=== PATIENT | male | born 1980 | race Caucasian/White ===

== ENCOUNTER 2017-04-17 11:40 | Inpatient (IN) | payer MEDICAID ==
[~2017-04-17] VITALS: Ht 165.1 cm; Wt 56.2 kg
[~2017-04-17 11:40] MED LIST: DIAZ5TAB7 PO; Folic Acid PO; MINERALS PO; MULTIVITAMIN PO; THIA100T25 PO; [UNRECOGNIZED DRUG - OTHER] PO
[2017-04-17 12:08] VITALS: BP 123/75
--- NOTE | 2017-04-17 12:27 | NUR ---
Patient ambulated to bed 6. RN evaluating patient at bedside.
--- NOTE | 2017-04-17 12:30 | NUR ---
PATIENT PRESENTS TO ED WITH c/o pain bright red blood to growth left side inner gluteal----pt states he was able to drain before but this time unable to drain hx---anxiety, gerd rx----ativan; DENIES N/V/D; SKIN IS PINK/WARM/DRY; AAOX4 WITH EVEN AND STEADY GAIT; LUNGS CLEAR BL; HR EVEN AND REGULAR; PT DENIES ANY FEVER, CP, SOB, OR COUGH AT THIS TIME; PATIENT STATES PAIN OF 9/10 AT THIS TIME; VSS; PATIENT POSITIONED FOR COMFORT; HOB ELEVATED; BEDRAILS UP X2; BED DOWN. ER MD MADE AWARE OF PT STATUS.
[2017-04-17] MEDS ORDERED: NACL 0.9% 1,000 ML IV SCH (13:04)
[2017-04-17] MEDS ORDERED: MORPHINE SULFATE 4 MG/ML SYR IVP ONE (13:05)
[2017-04-17] MEDS ORDERED: cefTRIAXone 1,000 MG in DEXT 5% MINI-BAG PLUS 50 ML IV ONE (13:05)
[2017-04-17] MEDS ORDERED: MORPHINE SULFATE 4 MG/ML SYR IVP PRN (13:15)
[2017-04-17] MEDS ORDERED: ACETAMINOPHEN 325 MG TAB PO PRN (13:15)
[2017-04-17] MEDS ORDERED: ONDANSETRON 4 MG/2 ML VIAL IVP PRN (13:15)
[2017-04-17 13:37] LABS: BASOPHILS # (AUTO) 0.3 K/uL (0.00-0.22); BASOPHILS % (AUTO) 3.2 % (0.0-2.0); EOSINOPHILS # (AUTO) 0.1 K/uL (0-0.4); EOSINOPHILS % (AUTO) 1.2 % (0.0-4.0); HEMATOCRIT 44.7 % (36-52); HEMOGLOBIN 14.8 g/dL (12.0-18.0); LYMPHOCYTES # (AUTO) 1.9 K/uL (2.0-11.5); LYMPHOCYTES % (AUTO) 19.9 % (20.5-51.1); MEAN CORPUSCULAR HEMOGLOBIN 30 pg (27-31); MEAN CORPUSCULAR HGB CONC 33 g/dL (33-37); MEAN CORPUSCULAR VOLUME 89 fL (80-94); MONOCYTES % (AUTO) 10.7 % (1.7-9.3); NEUTROPHILS # (AUTO) 6.1 K/uL (1.8-7.7); PLATELET COUNT (AUTO) 264 K/uL (140-450); RED BLOOD CELL COUNT(AUTO) 5.01 MIL/uL (4.20-6.10); RED CELL DISTRIBUTION WIDTH 12.2 % (11.6-13.7); WHITE BLOOD COUNT (AUTO) 9.4 K/uL (4.8-10.8)
[2017-04-17] MEDS ORDERED: cefTRIAXone 1,000 MG VIAL ONE ×2 (13:46→18:19)
[2017-04-17] MEDS: NACL 0.9% 1,000 ML IV SCH ×2 (13:50→18:18)
[2017-04-17 13:56] LABS: PROTHROMBIN TIME 10.3 secs (10.8-13.4)
[2017-04-17 13:56] LABS: APPEARANCE,URINE CLEAR (CLEAR); BILIRUBIN,URINE NEGATIVE (NEGATIVE); BLOOD, URINE NEGATIVE (NEGATIVE); COLOR,URINE YELLOW (YELLOW); LEUKOCYTE ESTERASE ,URINE NEGATIVE (NEGATIVE); NITRITE, URINE NEGATIVE (NEGATIVE); UGLUCOSE NEGATIVE (NEGATIVE)
[2017-04-17 14:05] LABS: ANION GAP 12.5 (8-16); CARBON DIOXIDE 28.4 mmol/L (21-32); CREATININE 0.7 mg/dL (0.7-1.3); POTASSIUM 3.9 mmol/L (3.5-5.1); TOTAL BILIRUBIN 0.5 mg/dL (0.0-1.0)
[2017-04-17 14:16] LABS: BARBITURATE, URINE NEGATIVE ng/ml (NEG <=200); BENZODIAZEPINE, URINE NEGATIVE ng/mL (NEG <=200); CANNABINOID, URINE NEGATIVE ng/mL (NEG <=50); COCAINE, URINE NEGATIVE ng/mL (NEG <=300); OPIATE, URINE POSITIVE ng/mL (NEG <=2000); PHENCYCLIDINE SCREEN,URINE NEGATIVE ng/mL (NEG <=25)
--- NOTE | 2017-04-17 14:16 | NUR ---
Patient will be admitted to care of DR ORTIZ. Admited to TELE. Will go to room 112B. Belongings list completed. Report to JARED BOWMAN.
[2017-04-17 14:17] LABS: MAGNESIUM 2.1 mg/dL (1.8-2.4)
[2017-04-17 14:18] LABS: CHOL/HDL RATIO 3.7 (1-4.5); FREE T4 (FREE THYROXINE) 0.98 ng/dL (0.76-1.46); THYROID STIMULATING HORMONE 1.62 uIU/mL (0.34-3.74)
--- NOTE | 2017-04-17 15:40 | NUR ---
PATIENT ARRIVED TO VIA GURNEY. PATIENT IS ALERT, AWAKE, AND ORIENTED X4, SPEAKS YORUBA. LUNG SOUNDS ARE CLEAR, BOWEL SOUNDS ARE ACTIVE IN ALL 4 QUADRANTS. DENIES ANY PAIN AT THIS TIME. ORIENTED PATIENT TO ROOM, PLACED CALL LIGHT WITHIN REACH AND INSTRUCTED ON ITS USE. ROOM FREE OF OBSTACLES. BED IN LOWEST POSITION, SIDERAILS UP X2, HOB ELEVATED TO 45 DEGREES. WILL CONTINUE TO MONITOR PATIENT.
--- NOTE | 2017-04-17 16:50 | NUR ---
TRANSLATED FOR DR MCFARLANE, AND ASSESSED PATIENTS PERIRECTAL ABSCESS. PICTURES TAKEN AND PLACED IN CHART. NO DRAINAGE FROM SITE.
[2017-04-17] MEDS ORDERED: DIAZEPAM 5 MG TAB PO SCH (17:00)
--- NOTE | 2017-04-17 17:20 | NUR ---
TRANSLATED FOR DR ROYAL, HE WILL BE DOING A DRAINAGE ON THE ABSCESS AND INSTRUCTED PATIENT ON DRESSING CHANGE.
--- NOTE | 2017-04-17 18:15 | NUR ---
PATIENT WHEN FOR CT SCAN, TRANSLATED FOR MAGALY. LET PATIENT KNOW OF SIGNS AND SYMPTOMS, AND NORMAL REACTIONS TO THE CONTRAST. PATIENT VERBALIZED UNDERSTANDING AND SIGNED CONSENT FOR PROCEDURE. HAS BEEN NPO SINCE AM.
--- NOTE | 2017-04-17 18:35 | NUR ---
PATIENT BACK FROM CT. DENIES ANY PAIN AT THIS TIME. RESULTS PENDING.
--- NOTE | 2017-04-17 19:15 | NUR ---
ENDORSED CONTINUITY OF CARE TO [employer] VICE PRESIDENT NURSE. PATIENT IN STABLE CONDITION. SHOWED PERIRECTAL ABSCESS TO RN. DENIES PAIN AT THIS TIME.
--- NOTE | 2017-04-17 19:16 | NUR ---
RECIEVED PT FROM DAY NURSE, PT IS IN STABLE CONDITION. NO S/S OF DISTRESS NOTED. PT IS AAOX4, PT IS ON RA. IV TO R AC 20 G, INFUSING WELL, DRY AND INTACT. RESPIRATIONS ARE EVEN AND UNLABORED, BOWEL SOUNDS ARE PRESENT. PT HAS PERIANAL ABSCESS, BOTTOM CAGER, NO DRAINAGE NOTED. INITIAL ASSESSMENT COMPLETED. PLAN OF CARE DISCUSSED WITH PT. PT VERBALIZED UNDERSTANDING. ALL SAFETY PRECAUTIONS MET, CALL LIGHT WITHIN REACH, WILL CONTINUE TO MONITOR.
[2017-04-17 20:00] VITALS: BP 69/112
--- NOTE | 2017-04-17 20:00 | NUR ---
PTS DUE MEDICATION GIVEN, NO S/S OF DISTRESS NOTED, PT WANTS TO EAT BEFORE MIDNIGHT. CALLED ASSOCIATE STORE LEADER. ALL SAFETY PRECAUTIONS MET.
--- NOTE | 2017-04-17 20:30 | NUR ---
PT WAS BROUGHT A SANDWICH AND SOME JUICE TO DRINK. PT UNDERSTANDS HE WILL BE NPO AFTER MIDNIGHT.
[2017-04-17] MEDS: DOCUSATE SODIUM 100 MG GELCAP PO SCH (20:49)
[2017-04-17] MEDS ORDERED: DIAZEPAM 5 MG TAB PO PRN (21:00)
--- NOTE | 2017-04-17 22:30 | NUR ---
CHECKED IN ON PT. PT RESTING COMFORTABLY IN BED. NO S/S OF DISTRESS NOTED. ALL SAFETY PRECAUTIONS MET, CALL LIGHT WITHIN REACH, WILL CONTINUE TO MONITOR.
[2017-04-18] VITALS: BP 100/56
[2017-04-18 04:00] VITALS: BP 102/56
--- NOTE | 2017-04-18 04:01 | NUR ---
PT RESTING IN BED, COMFORTABLE. NO S/S OF DISTRESS NOTED. ALL SAFETY PRECAUTIONS MET ,CALL LIGHT WITHIN REACH, WILL CONTINUE TO MONITOR.
--- NOTE | 2017-04-18 05:52 | NUR ---
PT RESTING IN BED, COMFORTABLE. NO S/S OF DISTRESS NOTED. ALL SAFETY PRECAUTIONS MET ,CALL LIGHT WITHIN REACH, WILL CONTINUE TO MONITOR.
[2017-04-18 07:12] LABS: BASOPHILS # (AUTO) 0.2 K/uL (0.00-0.22); BASOPHILS % (AUTO) 4.7 % (0.0-2.0); EOSINOPHILS # (AUTO) 0.2 K/uL (0-0.4); EOSINOPHILS % (AUTO) 4.2 % (0.0-4.0); HEMATOCRIT 43.2 % (36-52); LYMPHOCYTES # (AUTO) 1.6 K/uL (2.0-11.5); LYMPHOCYTES % (AUTO) 32.9 % (20.5-51.1); MEAN CORPUSCULAR HEMOGLOBIN 29 pg (27-31); MEAN CORPUSCULAR HGB CONC 33 g/dL (33-37); MEAN CORPUSCULAR VOLUME 90 fL (80-94); MONOCYTES # (AUTO) 0.6 K/uL (0.8-1.0); MONOCYTES % (AUTO) 11.5 % (1.7-9.3); NEUTROPHILS # (AUTO) 2.3 K/uL (1.8-7.7); NEUTROPHILS % (AUTO) 46.7 % (42.2-75.2); PLATELET COUNT (AUTO) 264 K/uL (140-450); RED CELL DISTRIBUTION WIDTH 12.1 % (11.6-13.7); WHITE BLOOD COUNT (AUTO) 4.9 K/uL (4.8-10.8)
[2017-04-18 07:24] LABS: CARBON DIOXIDE 28.5 mmol/L (21-32); CREATININE 0.7 mg/dL (0.7-1.3); POTASSIUM 4.5 mmol/L (3.5-5.1)
[2017-04-18 07:34] LABS: PHOSPHORUS 4.7 mg/dL (2.5-4.9)
--- NOTE | 2017-04-18 07:45 | NUR ---
ENDORSED PLAN OF CARE TO DAY NURSE, PT IN STABLE CONDITION, ALL SAFETY PRECAUTIONS MET, CALL LIGHT WITHIN REACH.
--- NOTE | 2017-04-18 07:46 | NUR ---
RECEIVED HANDOFF REPORT FROM PM RN. PATIENT A&OX4. PATIENT DENIES PAIN. IV SITE PATENT AND INTACT. NO SIGNS OR SYMPTOMS OF ACUTE DISTRESS NOTED. SAFETY MEASURES ENSURED. CALL LIGHT WITHIN REACH. WILL CONTINUE TO MONITOR.
[2017-04-18 08:00] VITALS: BP 99/60
[2017-04-18] MEDS: DOCUSATE SODIUM 100 MG GELCAP PO SCH ×2 (09:12→20:54)
[2017-04-18] MEDS: MULTIVITAMIN/MINERALS 1 TAB PO SCH (09:12)
--- NOTE | 2017-04-18 09:14 | NUR ---
AM MEDS GIVEN WITH EDUCATION. PATIENT VERBALIZED UNDERSTANDING. NO SIGNS OR SYMPTOMS OF ACUTE DISTRESS NOTED. CALL LIGHT WITHIN REACH. WILL CONTINUE TO MONITOR.
[2017-04-18 12:00] VITALS: BP 110/76
--- NOTE | 2017-04-18 12:52 | NUR ---
PATIENT RESTING IN BED. AT BEDSIDE. PATIENT DENIES PAIN. NO SIGNS OR SYMPTOMS OF ACUTE DISTRESS NOTED. CALL LIGHT WITHIN REACH. WILL CONTINUE TO MONITOR.
[2017-04-18] MEDS ORDERED: DIAZEPAM 5 MG TAB PO PRN (14:30)
--- NOTE | 2017-04-18 15:30 | NUR ---
PATIENT SLEEPING. NO SIGNS OR SYMPTOMS OF ACUTE DISTRESS NOTED. CALL LIGHT WITHIN REACH. WILL CONTINUE TO MONITOR.
[2017-04-18 16:00] VITALS: BP 108/60
[2017-04-18] MEDS: NACL 0.9% 1,000 ML IV SCH (17:40)
--- NOTE | 2017-04-18 17:40 | NUR ---
PT RESTING IN BED. NO S/S OF ACUTE DISTRESS. PT DENIES PAIN. CALL LIGHT WITHIN REACH. SAFETY MEASURES ENSURED. WILL CONTINUE TO MONITOR.
--- NOTE | 2017-04-18 19:13 | NUR ---
ENDORSED PLAN OF CARE TO PM RN. PATIENT STABLE. NO SIGNS OR SYMPTOMS OF ACUTE DISTRESS NOTED. SAFETY MEASURES ENSURED. CALL LIGHT WITHIN REACH. WILL CONTINUE TO MONITOR.
--- NOTE | 2017-04-18 19:14 | NUR ---
RECIEVED PT FROM DAY NURSE, PT IS IN STABLE CONDITION. NO S/S OF DISTRESS NOTED. PT IS AAOX4, PT IS ON RA. IV TO R AC 20 G, INFUSING WELL, DRY AND INTACT. RESPIRATIONS ARE EVEN AND UNLABORED, BOWEL SOUNDS ARE PRESENT. PT HAS PERIANAL ABSCESS, ELECTRONICS ASSEMBLER AND TESTER, NO DRAINAGE NOTED. INITIAL ASSESSMENT COMPLETED. PLAN OF CARE DISCUSSED WITH PT. PT VERBALIZED UNDERSTANDING. ALL SAFETY PRECAUTIONS MET, CALL LIGHT WITHIN REACH, WILL CONTINUE TO MONITOR.
--- NOTE | 2017-04-18 19:30 | NUR ---
PT TELE LEADS REMOVED, PT HAS ORDERS TO BE ON MED SURG IN PLACE.
--- NOTE | 2017-04-18 20:54 | NUR ---
HELD PTS COLACE BECAUSE PT STATED HE HAD DIARRHEA RIGHT BEFORE I HAD COME IN. PT STATED THIS IS HIS FIRST TIME HAVING DIARRHEA. HAT WAS PLACED IN TOILET AND PT VERBALIZED TO CALL NEXT TIME HE HAS DIARRHEA.
--- NOTE | 2017-04-18 21:00 | NUR ---
ASKED DR PADRON TO D/C COLACE BECAUSE PT IS HAVING DIARRHEA. DR PUTNAM D/C.
--- NOTE | 2017-04-18 23:00 | NUR ---
PT RESTING COMFORTABLY IN BED NO S/S OF DISTRESS NOTED. ALL SAFETY PRECAUTIONS MET, CALL LIGHT WITHIN REACH WILL CONTINUE TO MONITOR.
[2017-04-19] VITALS (8 sets, daily range): BP systolic 106–121; BP diastolic 57–76
--- NOTE | 2017-04-19 | NUR ---
PTS VITAL SIGNS STABLE, NO DISTRESS NOTED. PT HAS NO COMPLAINTS AT THIS TIME. ALL SAFETY PRECAUTIONS MET, WILL CONTINUE TO MONITOR.
--- NOTE | 2017-04-19 03:00 | NUR ---
PT RESTING COMFORTABLY IN BED, NO S/S OF DISTRESS NOTED. ALL SAFETY PRECAUTIONS MET, CALL LIGHT IN REACH WILL CONTINUE TO MONITOR.
[2017-04-19 06:03] LABS: BASOPHILS # (AUTO) 0.3 K/uL (0.00-0.22); BASOPHILS % (AUTO) 4.3 % (0.0-2.0); EOSINOPHILS # (AUTO) 0.2 K/uL (0-0.4); EOSINOPHILS % (AUTO) 3.9 % (0.0-4.0); HEMATOCRIT 39.9 % (36-52); HEMOGLOBIN 13.6 g/dL (12.0-18.0); LYMPHOCYTES # (AUTO) 1.8 K/uL (2.0-11.5); MEAN CORPUSCULAR HEMOGLOBIN 30 pg (27-31); MEAN CORPUSCULAR HGB CONC 34 g/dL (33-37); MEAN CORPUSCULAR VOLUME 88 fL (80-94); MONOCYTES # (AUTO) 0.8 K/uL (0.8-1.0); MONOCYTES % (AUTO) 13.1 % (1.7-9.3); NEUTROPHILS % (AUTO) 49.7 % (42.2-75.2); PLATELET COUNT (AUTO) 238 K/uL (140-450); RED BLOOD CELL COUNT(AUTO) 4.51 MIL/uL (4.20-6.10); RED CELL DISTRIBUTION WIDTH 11.7 % (11.6-13.7); WHITE BLOOD COUNT (AUTO) 6.1 K/uL (4.8-10.8)
[2017-04-19 06:19] LABS: CARBON DIOXIDE 24.9 mmol/L (21-32); CREATININE 0.6 mg/dL (0.7-1.3); POTASSIUM 3.9 mmol/L (3.5-5.1)
[2017-04-19 06:28] LABS: MAGNESIUM 1.8 mg/dL (1.8-2.4); PHOSPHORUS 4.7 mg/dL (2.5-4.9)
--- NOTE | 2017-04-19 06:38 | NUR ---
EDUCATED PT ON CHLORHEXIDINE WASH PRE OP. PT VERBALIZED UNDERSTANDING.
--- NOTE | 2017-04-19 07:24 | NUR ---
WENT TO OR [facility]IA [facility] FOR PROCEDURE. AWAKE, ALERT, AND ORIENTED X4. SPEECH CLEAR. NO C/O PAIN. IN STABLE CONDITION. INFORMED DR. MCFARLANE ABOUT PT. PROCEDURE PER OR NURSE INFORMATION. INFORMED CHARGE NURSE.
--- NOTE | 2017-04-19 07:25 | NUR ---
ENDORSED PLAN OF CARE TO DAY NURSE. PT IN STABLE CONDITION. NO S/S OF DISTRESS NOTED. PT IN STABLE CONDITION.
[2017-04-19] MEDS ORDERED: fentaNYL 0.05 MG/ML VIAL ONE (07:38)
[2017-04-19] MEDS ORDERED: PROPOFOL 200 MG/20 ML VIAL IV ONE (07:39)
[2017-04-19] MEDS ORDERED: SEVOFLURANE 250 ML BTL INH ONE (07:39)
[2017-04-19] MEDS ORDERED: DEXAMETHASONE 4 MG/ML VIAL IVP ONE (07:39)
[2017-04-19] MEDS ORDERED: ONDANSETRON 4 MG/2 ML VIAL IVP ONE (07:39)
[2017-04-19] MEDS ORDERED: ONDANSETRON 4 MG/2 ML VIAL IVP PRN (07:55)
[2017-04-19] MEDS ORDERED: HYDROGEN PEROXIDE 3% 240 ML BTL TP ONE (07:55)
[2017-04-19] MEDS ORDERED: HYDROmorphone 1 MG/ML AMP IVP PRN (07:55)
--- NOTE | 2017-04-19 08:00 | NUR ---
Patient's Plan of Care was discussed and reviewed with PLATFORM ARCHITECT: MICHELE LUI
[2017-04-19] MEDS ORDERED: HYDROmorphone PFS 2 MG/ML SYR ONE (08:43)
--- NOTE | 2017-04-19 09:05 | NUR ---
BACK FROM OR VIA GURNEY, AWAKE, ALERT, AND ORIENTED X4. SPEECH CLEAR. C/O LEFT BUTT PAIN 09/11. NO SOB, NOTED. IN STABLE CONDITION. EXPLAINED POST-OP CARE, INCISION CARE, PAIN MANAGEMENT TEACHING, DIET, USE OF CALL LIGHT/BED/TV/BATHROOM. VERBALIZED UNDERSTANDING. CALL LIGHT WITHIN REACH.
--- NOTE | 2017-04-19 09:12 | NUR ---
PATIENT HAS BEEN SCREENED AND CATEGORIZED MODERATE NUTRITION RISK. PATIENT WILL BE SEEN WITHIN 3-5 DAYS OF ADMISSION. 04/20/17-04/22/[address]
[2017-04-19] MEDS: LACTOBACILLUS RHAMNOSUS GG 1 EACH CAP PO SCH (09:52)
[2017-04-19] MEDS: MULTIVITAMIN/MINERALS 1 TAB PO SCH (09:53)
--- NOTE | 2017-04-19 11:30 | NUR ---
WENT TO BATHROOM WITHOUT ASSISTANCE. TOLERATED WELL. NO C/O PAIN. PT. VOIDED WITH MODERATE AMOUNT OF CLEAR YELLOW URINE OUTPUT.
--- NOTE | 2017-04-19 15:00 | NUR ---
SEEN WATCHING TV. NO DISCOMFORT NOTED. CALL LIGHT WITHIN REACH.
--- NOTE | 2017-04-19 19:18 | NUR ---
BEDSIDE REPORT GIVEN TO JOSEF RUFF. IVF INFUSING WELL. IN STABLE CONDITION.
--- NOTE | 2017-04-19 19:19 | NUR ---
RECD. RESTING IN BED, AWAKE, A/OX4. RESPIRATION EVEN AND UNLABORED. IV OF NS AT 50 ML/HR INFUSING, RIGHT AC G20. INCISION IN THE LEFT BUTTOCKS, COVERED WITH DRESSING,DRY AND INTACT. PLAN OF CARE FOR THE SHIFT DISCUSSED. VERBALIZED UNDERSTANDING. DENIES PAIN 0/10.
[2017-04-19] MEDS: PIPER/TAZO 3.375GM/D5W PREMIX 50 ML IV SCH (21:00)
--- NOTE | 2017-04-19 21:00 | NUR ---
CONVERSING WITH PATIENT IN THE OTHER BED.
[2017-04-19] MEDS: HYDROcodone/APAP 7.5/325 MG 1 TAB PO PRN (21:10)
--- NOTE | 2017-04-19 21:31 | NUR ---
Patient's Plan of Care was discussed and reviewed with ELECTRICAL MANAGER: JOSEF ARMENTA.
--- NOTE | 2017-04-19 22:00 | NUR ---
AMBULATED TO BR TO VOID. GAIT STEADY.
[2017-04-20] VITALS: BP 126/64
--- NOTE | 2017-04-20 | NUR ---
STILL AWAKE IN BED, NO COMPLAINT 0F PAIN.
[2017-04-20] MEDS: NACL 0.9% 1,000 ML IV SCH (01:28)
[2017-04-20] MEDS: PIPER/TAZO 3.375GM/D5W PREMIX 50 ML IV SCH ×3 (04:48→21:41)
--- NOTE | 2017-04-20 06:00 | NUR ---
STILL SLEEPING COMFORTABLY IN BED.
[2017-04-20 06:41] LABS: BASOPHILS # (AUTO) 0.3 K/uL (0.00-0.22); BASOPHILS % (AUTO) 4.6 % (0.0-2.0); EOSINOPHILS # (AUTO) 0.1 K/uL (0-0.4); EOSINOPHILS % (AUTO) 0.8 % (0.0-4.0); HEMATOCRIT 37.3 % (36-52); HEMOGLOBIN 12.9 g/dL (12.0-18.0); LYMPHOCYTES # (AUTO) 1.8 K/uL (2.0-11.5); LYMPHOCYTES % (AUTO) 25.5 % (20.5-51.1); MEAN CORPUSCULAR HEMOGLOBIN 31 pg (27-31); MEAN CORPUSCULAR HGB CONC 35 g/dL (33-37); MEAN CORPUSCULAR VOLUME 89 fL (80-94); MONOCYTES # (AUTO) 0.8 K/uL (0.8-1.0); NEUTROPHILS % (AUTO) 57.1 % (42.2-75.2); PLATELET COUNT (AUTO) 241 K/uL (140-450); RED CELL DISTRIBUTION WIDTH 12.1 % (11.6-13.7); WHITE BLOOD COUNT (AUTO) 6.9 K/uL (4.8-10.8)
--- NOTE | 2017-04-20 06:53 | NUR ---
TOLERATING CLEAR LIQUID DIET ADVANCE TO REGULAR. NO N/V NOTED DURING SHIFT. COMPLAINT OF PAIN ATTENDED PROMPTLY,MEDICATED ORDERED. WILL ENDORSE TO AM NURSE FOR CONTINUITY OF CARE.
[2017-04-20 06:58] LABS: CARBON DIOXIDE 25.5 mmol/L (21-32); CREATININE 0.7 mg/dL (0.7-1.3); POTASSIUM 3.5 mmol/L (3.5-5.1)
--- NOTE | 2017-04-20 07:30 | NUR ---
RECEIVED BEDSIDE REPORT FROM OUTPATIENT CLERK NURSE. PT AWAKE AND ALERT, NO SIGNS OF ACUTE DISTRESS. BOWEL SOUNDS ACTIVE IN ALL 4 QUADRANTS. LEFT BUTTOCKS WOUND COVERED WITH CLEAN AND DRY DRESSING. IV PATENT AND ASYMPTOMATIC. PATIENT DENIES PAIN AT THIS TIME. RE-ORIENTED TO HOSPITAL AND TO UNIT, PATIENT VERBALIZES UNDERSTANDING. BED IN LOW POSITION WITH BILATERAL HALF SIDE RAILS UP, CALL LIGHT WITHIN REACH. WILL CONTINUE TO MONITOR.
[2017-04-20 08:00] VITALS: BP 113/71
[2017-04-20] MEDS: LACTOBACILLUS RHAMNOSUS GG 1 EACH CAP PO SCH (08:40)
[2017-04-20] MEDS: MULTIVITAMIN/MINERALS 1 TAB PO SCH (08:40)
--- NOTE | 2017-04-20 09:35 | NUR ---
PT RESTING COMFORTABLY IN BED, NO SIGNS OF ACUTE DISTRESS. BED IN LOW POSITION WITH BILATERAL HALF SIDE RAILS UP, CALL LIGHT WITHIN REACH. WILL CONTINUE TO MONITOR.
--- NOTE | 2017-04-20 11:03 | NUR ---
RECEIVED NEW ORDERS FOR LABS AND SALINE LOCK PATIENT'S IV. NOTED, WILL CARRY OUT.
--- NOTE | 2017-04-20 13:50 | NUR ---
CHANGED PATIENT DRESSING ON LEFT BUTTOCKS WOUND AND RE-PACKED WOUND. PT TOLERATED WELL. WILL CONTINUE TO MONITOR.
[2017-04-20 16:00] VITALS: BP 108/64
--- NOTE | 2017-04-20 16:00 | NUR ---
PATIENT RESTING IN BED, SPOUSE AT BEDSIDE. SAFETY CHECKS IN PLACE. WILL CONTINUE TO MONITOR.
--- NOTE | 2017-04-20 17:30 | NUR ---
PT SLEEPING, NO SIGNS OF ACUTE DISTRESS. SAFETY CHECKS IN PLACE, WILL CONTINUE TO MONITOR.
--- NOTE | 2017-04-20 19:15 | NUR ---
PATIENT SLEEPING, NO SIGNS OF ACUTE DISTRESS. ENDORSED TO LABORER GOLF COURSE NURSE FOR CONTINUITY OF CARE.
--- NOTE | 2017-04-20 19:16 | NUR ---
RECD. RESTING IN BED, AWAKE, A/OX4. RESPIRATION EVEN AND UNLABORED. IV SALINE LOCK AT THE RIGHT AC G20, PATENT AND INTACT. INCISION IN THE LEFT BUTTOCKS COVERED WITH DRESSING DRY AND INTACT. PLAN OF CARE FOR THE SHIFT DISCUSSED. VERBALIZED UNDERSTANDING. PAIN IN THE SITE 08/11, STATED TOLERABLE, WILL CALL NURSE WHEN PAIN INCREASES. INDEPENDENT ABLE TO AMBULATE BY HIMSELF, STILL ON IV ANTIBIOTICS.
--- NOTE | 2017-04-20 20:00 | NUR ---
Patient's Plan of Care was discussed and reviewed with ORE TESTER: JOSEF ARMENTA
[2017-04-20] MEDS: HYDROcodone/APAP 7.5/325 MG 1 TAB PO PRN (20:54)
--- NOTE | 2017-04-20 21:00 | NUR ---
WATCHING TV, NO COMPLAINT OF PAIN 0/10.
[2017-04-21] VITALS: BP 100/56
[2017-04-21] MEDS: PIPER/TAZO 3.375GM/D5W PREMIX 50 ML IV SCH ×2 (05:04→13:31)
--- NOTE | 2017-04-21 05:05 | NUR ---
ALL ANTIBIOTICS DUE FOR THE SHIFT GIVEN BY CHARGE NURSE BRICE RN. PATIENT ABLE TO SLEPT WELL.
[2017-04-21 06:48] LABS: BASOPHILS # (AUTO) 0.2 K/uL (0.00-0.22); BASOPHILS % (AUTO) 2.6 % (0.0-2.0); EOSINOPHILS # (AUTO) 0.3 K/uL (0-0.4); EOSINOPHILS % (AUTO) 3.7 % (0.0-4.0); HEMATOCRIT 40.6 % (36-52); HEMOGLOBIN 13.8 g/dL (12.0-18.0); LYMPHOCYTES # (AUTO) 2.2 K/uL (2.0-11.5); LYMPHOCYTES % (AUTO) 29.6 % (20.5-51.1); MEAN CORPUSCULAR HEMOGLOBIN 30 pg (27-31); MEAN CORPUSCULAR HGB CONC 34 g/dL (33-37); MEAN CORPUSCULAR VOLUME 89 fL (80-94); MONOCYTES # (AUTO) 0.7 K/uL (0.8-1.0); MONOCYTES % (AUTO) 9.5 % (1.7-9.3); NEUTROPHILS % (AUTO) 54.6 % (42.2-75.2); PLATELET COUNT (AUTO) 267 K/uL (140-450); RED BLOOD CELL COUNT(AUTO) 4.57 MIL/uL (4.20-6.10); RED CELL DISTRIBUTION WIDTH 11.9 % (11.6-13.7); WHITE BLOOD COUNT (AUTO) 7.4 K/uL (4.8-10.8)
--- NOTE | 2017-04-21 07:00 | NUR ---
CONDITION REMAIN STABLE. WILL ENDORSE TO AM NURSE FOR CONTINUITY OF CARE.
[2017-04-21 07:21] LABS: ANION GAP 13.5 (8-16); CARBON DIOXIDE 26.5 mmol/L (21-32); CREATININE 0.8 mg/dL (0.7-1.3)
--- NOTE | 2017-04-21 07:25 | NUR ---
RECEIVED REPORT FROM THE CLAM DREDGE BOAT CAPTAIN NURSE AT BEDSIDE FOR CONTINUITY OF CARE. PT IS AWAKE AND ORIENTED, SYRIAC SPEAKING, VERY LITTLE LAO. PT IS S/P I & D ON 04/19. PT HAS DRESSING ON L BUTTOCKS. C/O VERY LITTLE PAIN. REFUSED PAIN MEDS. IV ON R AC 20G NS AT 50ML INFUSING. PLAN FOR TODAY: SS TO ARRANGE HH FOR WOUND CARE. D/C TODAY ONCE ARRANGED.
[2017-04-21 08:00] VITALS: BP 105/85
[2017-04-21] MEDS: LACTOBACILLUS RHAMNOSUS GG 1 EACH CAP PO SCH (08:37)
[2017-04-21] MEDS: MULTIVITAMIN/MINERALS 1 TAB PO SCH (08:37)
--- NOTE | 2017-04-21 08:40 | NUR ---
ADMINISTERED MORNING MEDS. PT TOLERATED WELL. DENIES PAIN. WILL CONTINUE TO MONITOR PT.
--- NOTE | 2017-04-21 10:10 | NUR ---
PT RESTING COMFORTABLY. NO SIGNS OF DISTRESS. WILL CONTINUE TO MONITOR PT.
[2017-04-21] MEDS ORDERED: CEPH500C16 PO (12:15)
[2017-04-21] MEDS ORDERED: IBUP-2213 PO (12:20)
--- NOTE | 2017-04-21 13:00 | NUR ---
WOUND CARE DONE. REMOVED OLD DRESSINGS. REMOVED PACKING. TOOK PICTURE. REPACKED WOUND. ADMINISTERED NEW DRESSING, GAUZE AND TAPE. PT TOLERATED WELL. EDUCATED ABOUT IMPORTANCE OF DRESSING CHANGE AND KEEPING IT CLEAN AND DRY. CHANGE TID PER ORDER OR NEEDED. VERBALIZED UNDERSTANDING.
--- NOTE | 2017-04-21 13:15 | NUR ---
WENT OVER D/C INSTRUCTIONS. ANSWERED ALL QUESTIONS. PT VERBALIZED UNDERSTANDING. EDUCATED PT RE F/U APPT AND DRESSING CHANGES. ONE MORE DOSE OF ABX FOR PT. AFTER ADMINISTRATION, WILL REMOVE IV AND ID BAND. PT WILL GET READY FOR D/C. DRESSING CHANGE SUPPLIES GIVEN X 1 WEEK.
--- NOTE | 2017-04-21 13:35 | NUR ---
ADMINISTERED LAST ZOSYN DOSE BEFORE D/C. PT TOLERATING WELL. AT BEDSIDE. WILL CONTINUE TO MONITOR PT.
--- NOTE | 2017-04-21 14:20 | NUR ---
ZOSYN DONE. REMOVED IV, CANNULA INTACT. NO BLEEDING NOTED. ID BANDS REMOVED. WILL GET READY TO LEAVE.
--- NOTE | 2017-04-21 14:25 | NUR ---
WHEELED PT OUT TO THE FRONT BY MAMI. PT HAS HIS PERSONAL BELONGINGS WITH HIM. AT HIS SIDE. PT IS IN STABLE CONDITION.
== END 2017-04-21 14:25 | disposition home or self-care (01) | DRG 226 ==
LOC: MED 11:40 → MTU 13:19
PROVIDERS: ADMIT Family Medicine; ATTEND Family Medicine
PROC: 0D9Q0ZZ Drainage of Anus, Open Approach (ICD-10-PCS; principal; 2017-04-20)
PROC: 0DBQ0ZX Excision of Anus, Open Approach, Diagnostic (ICD-10-PCS; 2017-04-20)
DX: K61.2 Anorectal abscess (principal); E83.39 Other disorders of phosphorus metabolism; E78.1 Pure hyperglyceridemia; F41.9 Anxiety disorder, unspecified; F10.21 Alcohol dependence, in remission; F17.210 Nicotine dependence, cigarettes, uncomplicated; G40.909 Epilepsy, unspecified, not intractable, without status epilepticus
CPT/HCPCS: 36415; 71010; 80048; 80053; 80305; 81003; 82040; 83036; 83605; 83735; 83880; 84100; 84439; 84443; 85025; 85610; 85730; 86886; 86900; 86901; 87040; 87070; 87075; 87081; 87086; 87205; 88304; 93005; G0482; J0696; J1100; J1170; J2270; J2405; J2543; J2704; J3010; J7030; J7060; Q9967

== ENCOUNTER 2017-09-09 18:28 | Emergency (ER) | payer MEDICAID ==
[~2017-09-09] VITALS: Ht 162.6 cm; Wt 62.8 kg
[~2017-09-09 18:28] MED LIST changes: +CEPH500C16 PO; -Folic Acid PO; +IBUP-2213 PO; -THIA100T25 PO
[2017-09-09 18:47] VITALS: BP 144/102
[2017-09-09 19:30] LABS: APPEARANCE,URINE CLEAR (CLEAR); BILIRUBIN,URINE NEGATIVE (NEGATIVE); BLOOD, URINE NEGATIVE (NEGATIVE); LEUKOCYTE ESTERASE ,URINE NEGATIVE (NEGATIVE); NITRITE, URINE NEGATIVE (NEGATIVE); PH,URINE 5.5 (5.0-9.0); UGLUCOSE NEGATIVE (NEGATIVE)
[2017-09-09 19:31] LABS: COLOR,URINE STRAW (YELLOW)
--- NOTE | 2017-09-09 20:30 | NUR ---
PATIENT LEFT WITHOUT BEING SEEN BY DR. ODONNELL. NO FURTHER CARE PROVIDED FOR PATIENT.
[2017-09-11 06:18] LABS: CHLAMYDIA TRACHOMATIS AMP DNA Negative (Negative)
== END 2017-09-09 20:30 | disposition left against medical advice (07) ==
LOC: MED 18:28
DX: R21 Rash and other nonspecific skin eruption (principal); Z53.21 Procedure and treatment not carried out due to patient leaving prior to being seen by health care provider
CPT/HCPCS: 36415; 81003; 87491; 99281

== ENCOUNTER 2017-11-23 19:15 | Emergency (ER) | payer MEDICAID ==
[~2017-11-23] VITALS: Ht 165.1 cm; Wt 59.0 kg
[2017-11-23 19:24] VITALS: BP 145/95
--- NOTE | 2017-11-23 19:24 | NUR ---
PATIENT AMBULATED TO BED 10
[2017-11-23] MEDS ORDERED: LIDOCAINE 1% 500 MG/50 ML VIAL INJ SCH (19:30)
--- NOTE | 2017-11-23 19:32 | NUR ---
37/M C/O RIGHT INNER BUTT CHEEK ABSCESS X1 WEEK. PATIENT STATES 5/10 PAIN WHILE STANDING, AND RAISES TO A 9/10 PAIN WHILE SITTING DOWN. PATIENT DENIES ANY FEVERS, SOB, CHEST PAIN. NO SIGNS OR SYMPTOMS OF ACUTE DISTRESS NOTED. WILL CONTINUE TO MONITOR.
[2017-11-23] MEDS ORDERED: LIDOCAINE/EPI 1% 1:100000 20 ML VIAL INJ ONE (19:41)
[2017-11-23] MEDS ORDERED: LIDOCAINE MPF 1% - **ER/OR** 5 ML ONE ×2 (19:43→20:26)
--- NOTE | 2017-11-23 19:44 | NUR ---
Dr. Dumont evaluating patient.
--- NOTE | 2017-11-23 19:50 | NUR ---
DR. NUÑEZ AT BEDSIDE FOR I&D. DR. NUÑEZ REQUESTED LIDOCAINE, ONLY AVAILABLE 50MG/5ML. ADMINISTERED 2 DOSES OF 50MG/5ML. PATIENT TOLERATED WELL. WILL CONTINUE TO MONITOR.
[2017-11-23 20:18] VITALS: BP 129/78
--- NOTE | 2017-11-23 20:19 | NUR ---
Patient discharged with v/s stable. Written and verbal after care instructions given and explained. Patient alert, oriented and verbalized understanding of instructions. Ambulatory with steady gait. All questions addressed prior to discharge. ID band removed. Patient advised to follow up with PMD. Rx of BACTRIM, MOTRIN, KEFLEX given. Patient educated on indication of medication including possible reaction and side effects. Opportunity to ask questions provided and answered.
== END 2017-11-23 20:19 | disposition home or self-care (01) ==
LOC: MED 19:15
DX: L02.31 Cutaneous abscess of buttock (principal)
CPT/HCPCS: 10060; 99283; J2001

== ENCOUNTER 2019-03-27 10:34 | Emergency (ER) | payer SELFPAY ==
[~2019-03-27] VITALS: Ht 162.6 cm; Wt 52.7 kg
[2019-03-27 11:07] VITALS: BP 154/107
--- NOTE | 2019-03-27 11:31 | NUR ---
CALLED LOUISE ALEJO SPOKE WITH [place], SHE ADVISED ME TO TELL PT THAT IF HE WANTS TO MAKE POLICE REPORT HE SHOULD GO INTO [place] [employer]. [facility] IF HE WANTS TO MAKE POLICE REPORT.
--- NOTE | 2019-03-27 12:52 | NUR ---
Patient ambulated to 1. RN evaluating patient at bedside.
[2019-03-27] MEDS ORDERED: LORazepam 2 MG/ML VIAL IM ONE (13:00)
[2019-03-27] MEDS ORDERED: IBUPROFEN 600 MG TAB PO ONE (13:00)
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
[2019-03-27 14:14] VITALS: BP 125/87
== END 2019-03-27 14:15 | disposition home or self-care (01) ==
LOC: MED 10:34
DX: M79.18 Myalgia, other site (principal); Z86.69 Personal history of other diseases of the nervous system and sense organs; Z79.899 Other long term (current) drug therapy
CPT/HCPCS: 96372; 99283; J2060

== ENCOUNTER 2022-03-03 10:01 | Emergency (ER) | payer SELFPAY ==
[~2022-03-03] VITALS: Ht 154.9 cm; Wt 73.5 kg
[~2022-03-03 10:01] MED LIST changes: -DIAZ5TAB7 PO; +DIAZ5TAB8 PO
[2022-03-03 10:11] VITALS: BP 133/77
--- NOTE | 2022-03-03 10:14 | NUR ---
PT TO LOBBY.
--- NOTE | 2022-03-03 10:16 | NUR ---
42 Y/O MALE C/O LOW BACK PAIN 05/11 DESCRIBES SHARP RADIATES TO LEFT SIDE [id number]. DENIES TRAUMA/INJURY. DENIES DYSURIA. DENIES FEVER/CHILLS. DENIES N/V/D. DENIES PMH NKA
[2022-03-03] MEDS ORDERED: KETOROLAC 30 MG/ML VIAL IM ONE (11:05)
[2022-03-03] MEDS ORDERED: LID5T TP (11:42)
[2022-03-03] MEDS ORDERED: IBUP-2213 PO (11:42)
[2022-03-03] MEDS ORDERED: methocarbamoL 500 MG TAB PO SCH (11:50)
[2022-03-03] MEDS ORDERED: METH-1681 PO (11:50)
[2022-03-03 12:24] VITALS: BP 133/77
--- NOTE | 2022-03-03 12:24 | NUR ---
Patient discharged with v/s stable. Written and verbal after care instructions ABOUT LOW BACK SPRAIN, CHRONIC BACK PAIN given and explained. Patient alert, oriented and verbalized understanding of instructions. Ambulatory with steady gait. All questions addressed prior to discharge. ID band removed. Patient advised to follow up with PMD. Rx of IBUPROFEN, LIDODERM, ROBAXIN given. Patient educated on indication of medication including possible reaction and side effects. Opportunity to ask questions provided and answered.
== END 2022-03-03 12:24 | disposition home or self-care (01) ==
LOC: MED 10:01
DX: M54.50 Low back pain, unspecified (principal); G89.29 Other chronic pain; Z79.899 Other long term (current) drug therapy
CPT/HCPCS: 96372; 99283; J1885

== ENCOUNTER 2023-10-25 13:48 | Emergency (ER) | payer OTHER ==
[~2023-10-25] VITALS: Ht 165.1 cm; Wt 55.8 kg
[~2023-10-25 13:48] MED LIST changes: +LID5T TP; +METH-1681 PO
[2023-10-25 14:19] VITALS: BP 136/79; PULSE 94; RESP 18; TEMP 98.8; O2SAT 97
[2023-10-25] MEDS: ACETAMINOPHEN 325 MG TAB PO ONE (15:20)
[2023-10-25] MEDS: LIDOCAINE MPF 1% 10 MG/ML VIAL INJ ONE (15:57)
[2023-10-25] MEDS ORDERED: CEPH-588 PO (16:03)
[2023-10-25] MEDS ORDERED: IBUP-2213 PO (16:03)
[2023-10-25] MEDS ORDERED: SULF-59 PO (16:03)
[2023-10-25 16:12] VITALS: BP 136/79; PULSE 94; RESP 18; TEMP 98.8; O2SAT 97
== END 2023-10-25 16:13 | disposition home or self-care (01) ==
LOC: MED 13:48
DX: L02.31 Cutaneous abscess of buttock (principal); Z86.69 Personal history of other diseases of the nervous system and sense organs; Z79.899 Other long term (current) drug therapy
CPT/HCPCS: 10060; 99284; J2001

== ENCOUNTER 2023-10-27 12:14 | Emergency (ER) | payer OTHER ==
[~2023-10-27] VITALS: Ht 161.3 cm; Wt 55.3 kg
[~2023-10-27 12:14] MED LIST changes: +CEPH-588 PO; +SULF-59 PO
[2023-10-27 12:16] VITALS: BP 143/79; PULSE 79; RESP 18; TEMP 97.5; O2SAT 98
[2023-10-27 13:37] VITALS: BP 135/82; PULSE 77; RESP 18; TEMP 98; O2SAT 99
== END 2023-10-27 13:37 | disposition home or self-care (01) ==
LOC: MED 12:14
DX: L02.31 Cutaneous abscess of buttock (principal); Z48.01 Encounter for change or removal of surgical wound dressing; R56.9 Unspecified convulsions; R03.0 Elevated blood-pressure reading, without diagnosis of hypertension; Z79.1 Long term (current) use of non-steroidal anti-inflammatories (NSAID)
CPT/HCPCS: 99281

== ENCOUNTER 2024-01-07 14:52 | Emergency (ER) | payer OTHER ==
[~2024-01-07] VITALS: Ht 165.1 cm; Wt 54.4 kg
[2024-01-07 15:16] VITALS: BP 160/100; PULSE 100; RESP 18; TEMP 97.7; O2SAT 100
[2024-01-07] MEDS: LORazepam 2 MG/ML VIAL IVP ONE (16:20)
[2024-01-07] MEDS: NACL 0.9% 1,000 ML IV ONE (16:20)
[2024-01-07 16:25] LABS: BASOPHILS # (AUTO) 0.1 K/uL (0.00-0.22); BASOPHILS % (AUTO) 1.3 % (0.0-2.0); EOSINOPHILS # (AUTO) 0.1 K/uL (0-0.4); EOSINOPHILS % (AUTO) 1.1 % (0.0-4.0); HEMATOCRIT 37.6 % (36-52); HEMOGLOBIN 13.5 g/dL (12.0-18.0); LYMPHOCYTES # (AUTO) 0.7 K/uL (2.0-11.5); LYMPHOCYTES % (AUTO) 10.4 % (20.5-51.1); MEAN CORPUSCULAR HEMOGLOBIN 34 pg (27-31); MEAN CORPUSCULAR HGB CONC 36 g/dL (33-37); MEAN CORPUSCULAR VOLUME 93.3 fL (80-94); MONOCYTES # (AUTO) 1.1 K/uL (0.8-1.0); NEUTROPHILS # (AUTO) 4.6 K/uL (1.8-7.7); NEUTROPHILS % (AUTO) 70.2 % (42.2-75.2); PLATELET COUNT (AUTO) 132 K/uL (140-450); RED BLOOD CELL COUNT(AUTO) 4.02 MIL/uL (4.20-6.10); RED CELL DISTRIBUTION WIDTH 13.3 % (11.6-13.7); WHITE BLOOD COUNT (AUTO) 6.5 K/uL (4.8-10.8)
[2024-01-07 16:54] LABS: ANION GAP 14.8 (8-16); CALCIUM 9.4 mg/dL (8.5-10.1); CARBON DIOXIDE 25.4 mmol/L (21-32); CREATININE 0.5 mg/dL (0.6-1.3); POTASSIUM 3.2 mmol/L (3.5-5.1)
[2024-01-07 17:00] LABS: ALBUMIN 3.8 g/dL (3.4-5.0); BILIRUBIN,DIRECT 0.4 mg/dL (0.0-0.3); TOTAL BILIRUBIN 1.1 mg/dL (0.0-1.0); TOTAL PROTEIN, SERUM 8.2 g/dL (6.4-8.2)
[2024-01-07 17:37] LABS: APPEARANCE,URINE CLEAR (CLEAR); BILIRUBIN,URINE NEGATIVE (NEGATIVE); BLOOD, URINE TRACE-I (NEGATIVE); COLOR,URINE YELLOW (YELLOW); LEUKOCYTE ESTERASE ,URINE NEGATIVE (NEGATIVE); NITRITE, URINE NEGATIVE (NEGATIVE); PROTEIN,URINE NEGATIVE (NEGATIVE); UGLUCOSE NEGATIVE (NEGATIVE); UROBILINOGEN,URINE 0.2 EU/dL (0.2 - 1)
[2024-01-07 17:39] LABS: BACTERIA,URINE None Seen /HPF (None Seen); RBC,URINE NONE SEEN /HPF (0-5); SQUAMOUS EPITHELIAL CELL,UR None Seen /LPF (0-3 (FEW)); WBC,URINE NONE SEEN /HPF (0-5)
[2024-01-07 18:21] LABS: AMPHETAMINE, URINE NEGATIVE ng/ml (NEG <=1000); BARBITURATE, URINE NEGATIVE ng/ml (NEG <=200); BENZODIAZEPINE, URINE NEGATIVE ng/mL (NEG <=200); CANNABINOID, URINE NEGATIVE ng/mL (NEG <=50); COCAINE, URINE NEGATIVE ng/mL (NEG <=300); OPIATE, URINE NEGATIVE ng/mL (NEG <=2000); PHENCYCLIDINE SCREEN,URINE NEGATIVE ng/mL (NEG <=25)
[2024-01-07] MEDS ORDERED: CHLO-757 PO (19:11)
[2024-01-07 19:30] VITALS: BP 145/90; PULSE 105; RESP 16; TEMP 99.2; O2SAT 97
== END 2024-01-07 19:30 | disposition home or self-care (01) ==
LOC: MED 14:52
DX: F10.239 Alcohol dependence with withdrawal, unspecified (principal); Z79.899 Other long term (current) drug therapy; Y90.9 Presence of alcohol in blood, level not specified
CPT/HCPCS: 36415; 80048; 80076; 80305; 81001; 83690; 85025; 93005; 96361; 96374; 99284; G0482; J2060; J7030

== ENCOUNTER 2024-01-08 07:35 | Emergency (ER) | payer OTHER ==
[~2024-01-08] VITALS: Ht 170.2 cm; Wt 68.0 kg
[~2024-01-08 07:35] MED LIST changes: +CHLO-757 PO
[2024-01-08 07:41] VITALS: BP 170/107; PULSE 116; RESP 18; TEMP 98.2; O2SAT 99
[2024-01-08] MEDS: DIAZEPAM PFS 10 MG/2 ML SYR IVP ONE ×2 (08:24→10:01)
[2024-01-08 11:23] VITALS: BP 151/91; PULSE 95; RESP 18; TEMP 98.4; O2SAT 97
== END 2024-01-08 11:23 | disposition home or self-care (01) ==
LOC: MED 07:35
DX: F10.239 Alcohol dependence with withdrawal, unspecified (principal); F41.9 Anxiety disorder, unspecified; Z79.1 Long term (current) use of non-steroidal anti-inflammatories (NSAID); Z79.2 Long term (current) use of antibiotics; Z79.899 Other long term (current) drug therapy
CPT/HCPCS: 96374; 96376; 99284; J3360